=== PATIENT | male | born 1960 | race Caucasian/White ===

== ENCOUNTER 2019-03-07 06:14 | Emergency (ER) | payer BC ==
[~2019-03-07] VITALS: Ht 177.8 cm; Wt 81.6 kg
[2019-03-07] MEDS ORDERED: LISINOPRIL10 MG PO (06:34)
[2019-03-07] MEDS ORDERED: ATORVASTATIN CA10 MG PO (06:34)
== END 2019-03-07 09:35 | disposition home or self-care (01) ==
LOC: ER 06:14
DX: N39.0 Urinary tract infection, site not specified (principal)